=== PATIENT | male | born 1960 | race African-American/Black ===

== ENCOUNTER 2019-09-08 07:20 | Emergency (ER) | payer OTHER ==
[~2019-09-08] VITALS: Ht 167.6 cm; Wt 72.7 kg
[~2019-09-08 07:20] MED LIST: AMLO-258 PO; IBUP-2077 PO
[2019-09-08] MEDS ORDERED: GENTAMICIN SULFATE 0.3% OPHTHALMIC SOLUTION 5 ML OD ONE (08:00)
[2019-09-08] MEDS ORDERED: ACETAMINOPHEN 500 MG TABLET PO ONE (08:00)
[2019-09-08 08:14] VITALS: BP 157/89
== END 2019-09-08 08:14 | disposition home or self-care (01) ==
LOC: EMS 07:23
DX: S00.83XA Contusion of other part of head, initial encounter (principal); H10.9 Unspecified conjunctivitis; I10 Essential (primary) hypertension; F17.210 Nicotine dependence, cigarettes, uncomplicated; Z79.899 Other long term (current) drug therapy; W55.12XA Struck by horse, initial encounter; Y93.89 Activity, other specified; Y92.89 Other specified places as the place of occurrence of the external cause; Y99.8 Other external cause status
CPT/HCPCS: 99406

== ENCOUNTER 2020-08-15 15:11 | Inpatient (IN) | payer OTHER ==
[~2020-08-15] VITALS: Ht 170.2 cm; Wt 66.0 kg
[2020-08-15 16:47] LABS: BASOPHILS % (AUTO) 0.6 % (0.0-2.0); EOSINOPHILS % (AUTO) 4.3 % (1.0-6.0); HEMATOCRIT 42.4 % (41-53); HEMOGLOBIN 14.2 g/dL (13.5-17.5); LYMPHOCYTES # (AUTO) 1.3 K/uL (1.0-4.8); LYMPHOCYTES % (AUTO) 25.4 % (22.0-44.0); MEAN CORPUSCULAR HEMOGLOBIN 33.4 pg (26.0-34.0); MEAN CORPUSCULAR HGB CONC 33.4 G/dL (31.0-37.0); MEAN CORPUSCULAR VOLUME 100 fL (80-100); MONOCYTES # (AUTO) 0.4 K/uL (0.1-1.0); MONOCYTES % (AUTO) 8.2 % (2.0-9.0); NEUTROPHILS # (AUTO) 3.1 K/uL (1.8-7.7); NEUTROPHILS % (AUTO) 61.5 % (40.0-70.0); PLATELET COUNT (AUTO) 226 K/uL (150-450); RED BLOOD CELL COUNT(AUTO) 4.25 MIL/uL (4.50-5.90); RED CELL DISTRIBUTION WIDTH 12.7 % (11.5-14.5)
[2020-08-15 16:50] LABS: ANION GAP 5 mmol/L (8-16); CALCIUM, TOTAL 8.6 mg/dL (8.8-10.5); CARBON DIOXIDE 28 mmol/L (22-29); CHLORIDE 106 mmol/L (98-107); GLOMERULAR FILTR. RATE CALC 50 mL/min (>60); GLUCOSE,RANDOM 96 mg/dL (70-110); SODIUM SERUM 139 mmol/L (136-145); UREA NITROGEN, BLOOD 15 mg/dL (7-18)
[2020-08-15 16:55] LABS: ALANINE AMINOTRANSFERASE 23 U/L (12-78); ALBUMIN 3.5 g/dL (3.4-5.0); ALKALINE PHOSPHATASE 84 U/L (46-116); ASPARTATE AMINOTRANSFERASE 26 U/L (15-37); BILIRUBIN,TOTAL 1.4 mg/dL (0.1-1.0); TOTAL PROTEIN, SERUM 6.7 g/dL (6.4-8.2)
[2020-08-15] MEDS ORDERED: ASPIRIN 325 MG TABLET PO ONE (18:30)
[2020-08-15] MEDS ORDERED: ACETAMINOPHEN 325 MG TABLET PO PRN ×2 (18:30→21:00)
[2020-08-15] MEDS ORDERED: 0.9% SODIUM CHLORIDE 10 ML SYRINGE IVP PRN (18:30)
[2020-08-15] MEDS ORDERED: ONDANSETRON HCL 4 MG/2 ML VIAL IVP PRN ×2 (18:30→21:00)
[2020-08-15 19:29] LABS: COVID AG,FIA SOURCE NASOPHARYNGEAL
[2020-08-15] MEDS: DOCUSATE SODIUM 100 MG CAPSULE PO SCH (21:00)
[2020-08-15] MEDS ORDERED: HYDROCODONE/ACETAMINOPHEN 5-325 MG TABLET PO PRN (21:00)
[2020-08-15] MEDS ORDERED: ZOLPIDEM TARTRATE 5 MG TABLET PO PRN (21:00)
[2020-08-15] MEDS ORDERED: MAGNESIUM HYDROXIDE SUSPENSION 30 ML UDCUP PO PRN (21:00)
[2020-08-15] MEDS ORDERED: BISACODYL 10 MG RECTAL RECTAL SUPPOSITORY PR PRN (21:00)
[2020-08-15] MEDS ORDERED: ERYTHROMYCIN 0.5% 3.5 GM TUBE OPHTHALMIC OINTMENT OS ONE (21:00)
[2020-08-15] MEDS ORDERED: MORPHINE SULFATE 2 MG/ML SYRINGE IVP PRN (21:00)
[2020-08-15] MEDS ORDERED: SODIUM CHLORIDE 0.9% 1,000 ML IV ONE (21:15)
[2020-08-15 22:26] VITALS: BP 155/95
[2020-08-15] MEDS: HEPARIN SODIUM,PORCINE 5,000 UNITS/ML VIAL SQ SCH (23:11)
[2020-08-16 04:47] VITALS: BP 125/80
[2020-08-16 06:27] LABS: BASOPHILS % (AUTO) 0.3 % (0.0-2.0); EOSINOPHILS % (AUTO) 5.1 % (1.0-6.0); HEMATOCRIT 38.8 % (41-53); HEMOGLOBIN 12.8 g/dL (13.5-17.5); LYMPHOCYTES # (AUTO) 1.4 K/uL (1.0-4.8); LYMPHOCYTES % (AUTO) 31.3 % (22.0-44.0); MEAN CORPUSCULAR HEMOGLOBIN 33.3 pg (26.0-34.0); MEAN CORPUSCULAR VOLUME 101 fL (80-100); MONOCYTES # (AUTO) 0.4 K/uL (0.1-1.0); MONOCYTES % (AUTO) 10.1 % (2.0-9.0); NEUTROPHILS # (AUTO) 2.3 K/uL (1.8-7.7); NEUTROPHILS % (AUTO) 53.2 % (40.0-70.0); PLATELET COUNT (AUTO) 207 K/uL (150-450); RED BLOOD CELL COUNT(AUTO) 3.84 MIL/uL (4.50-5.90); RED CELL DISTRIBUTION WIDTH 12.9 % (11.5-14.5)
[2020-08-16 06:49] LABS: CALCIUM, TOTAL 8.4 mg/dL (8.8-10.5); CHOL/HDL RATIO 2.8 (4.2-7.3); CREATININE 1.67 mg/dL (0.60-1.30); POTASSIUM 3.9 mmol/L (3.5-5.1)
[2020-08-16] MEDS: PANTOPRAZOLE SODIUM 40 MG DR TABLET PO SCH (07:44)
[2020-08-16] MEDS: AmLODIPine BESYLATE 10 MG TABLET PO SCH (07:44)
[2020-08-16] MEDS: DOCUSATE SODIUM 100 MG CAPSULE PO SCH ×2 (07:44→20:25)
[2020-08-16] MEDS: ASPIRIN 81 MG CHEWABLE TABLET PO SCH (07:44)
[2020-08-16] MEDS: HEPARIN SODIUM,PORCINE 5,000 UNITS/ML VIAL SQ SCH ×3 (07:45→23:21)
[2020-08-16] MEDS ORDERED: GADOTERATE MEGLUMINE 10 MMOL/20 ML VIAL IVP ONE (08:19)
[2020-08-16 08:20] VITALS: BP 131/72
[2020-08-16] MEDS ORDERED: SODIUM CHLORIDE 0.9% 1,000 ML IV ONE (11:00)
[2020-08-16] MEDS: ATORVASTATIN CALCIUM 40 MG TABLET PO SCH (11:29)
[2020-08-16 16:40] VITALS: BP 147/83
[2020-08-16 20:03] VITALS: BP 126/77
[2020-08-16 23:38] VITALS: BP 133/74
[2020-08-17 04:21] VITALS: BP 145/82
[2020-08-17 06:24] LABS: CALCIUM, TOTAL 8.3 mg/dL (8.8-10.5); CREATININE 1.46 mg/dL (0.60-1.30); POTASSIUM 4.2 mmol/L (3.5-5.1)
[2020-08-17] MEDS: HEPARIN SODIUM,PORCINE 5,000 UNITS/ML VIAL SQ SCH ×3 (08:02→21:58)
[2020-08-17] MEDS: ATORVASTATIN CALCIUM 40 MG TABLET PO SCH (08:02)
[2020-08-17] MEDS: AmLODIPine BESYLATE 10 MG TABLET PO SCH (08:02)
[2020-08-17] MEDS: ASPIRIN 81 MG CHEWABLE TABLET PO SCH (08:02)
[2020-08-17] MEDS: PANTOPRAZOLE SODIUM 40 MG DR TABLET PO SCH (08:02)
[2020-08-17] MEDS: DOCUSATE SODIUM 100 MG CAPSULE PO SCH ×2 (08:02→21:49)
[2020-08-17 08:09] VITALS: BP 138/90
[2020-08-17 12:11] VITALS: BP 144/87
[2020-08-17 15:53] VITALS: BP 130/77
[2020-08-17 19:30] VITALS: BP 148/79
[2020-08-18 00:24] VITALS: BP 131/87
[2020-08-18 05:33] VITALS: BP 139/85
[2020-08-18 07:34] VITALS: BP 141/97
[2020-08-18] MEDS: ASPIRIN 81 MG CHEWABLE TABLET PO SCH (08:20)
[2020-08-18] MEDS: ATORVASTATIN CALCIUM 40 MG TABLET PO SCH (08:20)
[2020-08-18] MEDS: PANTOPRAZOLE SODIUM 40 MG DR TABLET PO SCH (08:20)
[2020-08-18] MEDS: AmLODIPine BESYLATE 10 MG TABLET PO SCH (08:20)
[2020-08-18] MEDS: HEPARIN SODIUM,PORCINE 5,000 UNITS/ML VIAL SQ SCH (08:21)
[2020-08-18] MEDS: DOCUSATE SODIUM 100 MG CAPSULE PO SCH (08:21)
[2020-08-18 11:33] VITALS: BP 152/89
[2020-08-18] MEDS ORDERED: ASPI81TA87 PO (12:56)
[2020-08-18] MEDS ORDERED: AMLO10TA55 PO (12:57)
[2020-08-18] MEDS ORDERED: ATOR40TA28 PO (12:57)
== END 2020-08-18 15:00 | disposition home or self-care (01) | DRG 45 ==
LOC: EMS 15:12 → 5S 18:52
PROVIDERS: ADMIT Internal Medicine; ATTEND Internal Medicine
DX: I63.9 Cerebral infarction, unspecified (principal); N17.9 Acute kidney failure, unspecified; F17.200 Nicotine dependence, unspecified, uncomplicated; H10.9 Unspecified conjunctivitis; G81.91 Hemiplegia, unspecified affecting right dominant side; I12.9 Hypertensive chronic kidney disease with stage 1 through stage 4 chronic kidney disease, or unspecified chronic kidney disease; N18.9 Chronic kidney disease, unspecified; E78.5 Hyperlipidemia, unspecified; Z20.822 Contact with and (suspected) exposure to COVID-19; S00.83XA Contusion of other part of head, initial encounter; X58.XXXA Exposure to other specified factors, initial encounter; Y93.89 Activity, other specified; Y92.89 Other specified places as the place of occurrence of the external cause; Y99.8 Other external cause status
CPT/HCPCS: 70450; 70553; 80048; 80053; 80061; 84484; 85025; 92507; 92521; 92610; 93005; 93306; 93880; 97110; 97112; 97116; 97162; 97166; 97535; 99285; A9575; G0480; J1644; J7030

== ENCOUNTER 2020-11-26 20:54 | Emergency (ER) | payer OTHER ==
[~2020-11-26] VITALS: Ht 167.6 cm; Wt 54.5 kg
[~2020-11-26 20:54] MED LIST changes: +AMLO10TA55 PO; +ASPI81TA87 PO; +ATOR40TA28 PO; -IBUP-2077 PO
[2020-11-26] MEDS ORDERED: HYDROCODONE/ACETAMINOPHEN 5-325 MG TABLET PO ONE (21:45)
[2020-11-26] MEDS ORDERED: LIDOCAINE 1% 10 ML VIAL ID ONE (22:00)
[2020-11-26 23:00] VITALS: BP 137/81
[2020-11-26] MEDS ORDERED: SULFAMETHOX/TRIMETH DS 800-160 MG/TABLET PO ONE (23:00)
[2020-11-26] MEDS ORDERED: CEPHALEXIN MONOHYDRATE 500 MG CAPSULE PO ONE (23:00)
[2020-11-26] MEDS ORDERED: PERTUSS(ACELL),DIPH,TET VAC/PF 0.5 ML SYRINGE IM. ONE (23:00)
== END 2020-11-27 00:01 | disposition home or self-care (01) ==
LOC: EMS 21:05
DX: L08.9 Local infection of the skin and subcutaneous tissue, unspecified (principal); L03.011 Cellulitis of right finger; I12.9 Hypertensive chronic kidney disease with stage 1 through stage 4 chronic kidney disease, or unspecified chronic kidney disease; N18.9 Chronic kidney disease, unspecified; Z79.82 Long term (current) use of aspirin; F17.210 Nicotine dependence, cigarettes, uncomplicated
CPT/HCPCS: 10160; 73130; 82962; 90471; 90715; 99284; J3490

== ENCOUNTER 2020-12-16 17:01 | Inpatient (IN) | payer OTHER ==
[~2020-12-16] VITALS: Ht 167.6 cm; Wt 64.7 kg
[2020-12-16] MEDS ORDERED: CEPH500C3 PO (17:21)
[2020-12-16] MEDS ORDERED: GABA-1216 PO (17:21)
[2020-12-16] MEDS ORDERED: ATOR40TA28 PO (17:21)
[2020-12-16] MEDS ORDERED: DOCU-270 PO (17:21)
[2020-12-16] MEDS ORDERED: SULF-261 PO (17:21)
[2020-12-16] MEDS ORDERED: TRAM50TA4 PO (17:21)
[2020-12-16] MEDS ORDERED: TAMS-13 PO (17:21)
[2020-12-16] MEDS ORDERED: ACETAMINOPHEN 325 MG TABLET PO ONE (19:30)
[2020-12-16 19:49] LABS: EOSINOPHILS % (AUTO) 3.5 % (1.0-6.0); HEMATOCRIT 35.4 % (41-53); HEMOGLOBIN 11.7 g/dL (13.5-17.5); LYMPHOCYTES # (AUTO) 1.4 K/uL (1.0-4.8); LYMPHOCYTES % (AUTO) 29.8 % (22.0-44.0); MEAN CORPUSCULAR HEMOGLOBIN 32.7 pg (26.0-34.0); MEAN CORPUSCULAR VOLUME 99 fL (80-100); MONOCYTES # (AUTO) 0.5 K/uL (0.1-1.0); MONOCYTES % (AUTO) 11.7 % (2.0-9.0); NEUTROPHILS # (AUTO) 2.5 K/uL (1.8-7.7); PLATELET COUNT (AUTO) 290 K/uL (150-450); RED BLOOD CELL COUNT(AUTO) 3.57 MIL/uL (4.50-5.90); RED CELL DISTRIBUTION WIDTH 13.7 % (11.5-14.5)
[2020-12-16 20:00] LABS: CALCIUM, TOTAL 8.9 mg/dL (8.8-10.5); CREATININE 1.83 mg/dL (0.60-1.30); POTASSIUM 4.8 mmol/L (3.5-5.1)
[2020-12-16 20:06] LABS: ALBUMIN 3.7 g/dL (3.4-5.0); BILIRUBIN,TOTAL 0.5 mg/dL (0.1-1.0); TOTAL PROTEIN, SERUM 7.3 g/dL (6.4-8.2)
[2020-12-16] MEDS ORDERED: ACETAMINOPHEN 325 MG TABLET PO PRN (20:45)
[2020-12-16] MEDS ORDERED: ONDANSETRON HCL 4 MG/2 ML VIAL IVP PRN ×2 (20:45→21:00)
[2020-12-16] MEDS ORDERED: SODIUM CHLORIDE 0.9% 1,000 ML IV ONE (20:45)
[2020-12-16] MEDS: ATORVASTATIN CALCIUM 40 MG TABLET PO SCH (20:50)
[2020-12-16 20:51] LABS: COVID AG,FIA SOURCE NASOPHARYNGEAL
[2020-12-16] MEDS: OxyCODONE HCL/ACETAMINOPHEN 5-325 MG TABLET PO PRN (20:52)
[2020-12-16] MEDS: DOCUSATE SODIUM 100 MG CAPSULE PO SCH (20:53)
[2020-12-16] MEDS ORDERED: ASPIRIN 81 MG CHEWABLE TABLET PO SCH (21:00)
[2020-12-16] MEDS: HEPARIN SODIUM,PORCINE 5,000 UNITS/ML VIAL SQ SCH (23:07)
[2020-12-17] MEDS: OxyCODONE HCL/ACETAMINOPHEN 5-325 MG TABLET PO PRN ×3 (01:06→19:49)
[2020-12-17] MEDS: HEPARIN SODIUM,PORCINE 5,000 UNITS/ML VIAL SQ SCH ×3 (08:04→23:46)
[2020-12-17] MEDS: AmLODIPine BESYLATE 5 MG TABLET PO SCH (08:05)
[2020-12-17] MEDS: FAMOTIDINE 20 MG TABLET PO SCH (08:05)
[2020-12-17] MEDS: DOCUSATE SODIUM 100 MG CAPSULE PO SCH ×3 (08:05→20:01)
[2020-12-17 09:35] VITALS: BP 111/78
[2020-12-17 11:28] VITALS: BP 122/83
[2020-12-17] MEDS ORDERED: TraMADol HCL 50 MG TABLET PO PRN (14:30)
[2020-12-17] MEDS: CEPHALEXIN MONOHYDRATE 500 MG CAPSULE PO SCH ×2 (15:48→20:01)
[2020-12-17 15:49] VITALS: BP 121/69
[2020-12-17 19:59] VITALS: BP 107/62
[2020-12-17] MEDS: SULFAMETHOX/TRIMETH DS 800-160 MG/TABLET PO SCH (20:00)
[2020-12-17] MEDS: ATORVASTATIN CALCIUM 40 MG TABLET PO SCH (20:00)
[2020-12-17] MEDS: GABAPENTIN 100 MG CAPSULE PO SCH (20:01)
[2020-12-17 23:57] VITALS: BP 126/74
[2020-12-18 05:07] VITALS: BP 128/80
[2020-12-18 07:30] VITALS: BP 130/76
[2020-12-18] MEDS: DOCUSATE SODIUM 100 MG CAPSULE PO SCH ×3 (08:35→20:59)
[2020-12-18] MEDS: FAMOTIDINE 20 MG TABLET PO SCH (08:35)
[2020-12-18] MEDS: CEPHALEXIN MONOHYDRATE 500 MG CAPSULE PO SCH ×4 (08:35→20:37)
[2020-12-18] MEDS: ASPIRIN 81 MG DR TABLET PO SCH (08:35)
[2020-12-18] MEDS: TAMSULOSIN HCL 0.4 MG CAPSULE PO SCH (08:35)
[2020-12-18] MEDS: HEPARIN SODIUM,PORCINE 5,000 UNITS/ML VIAL SQ SCH ×3 (08:36→23:31)
[2020-12-18] MEDS: AmLODIPine BESYLATE 5 MG TABLET PO SCH (08:36)
[2020-12-18] MEDS: SULFAMETHOX/TRIMETH DS 800-160 MG/TABLET PO SCH ×2 (08:36→20:37)
[2020-12-18 11:30] VITALS: BP 114/74
[2020-12-18 15:56] LABS: BASOPHILS % (AUTO) 0.6 % (0.0-2.0); EOSINOPHILS % (AUTO) 4.1 % (1.0-6.0); HEMATOCRIT 35.7 % (41-53); HEMOGLOBIN 11.9 g/dL (13.5-17.5); LYMPHOCYTES # (AUTO) 1.2 K/uL (1.0-4.8); LYMPHOCYTES % (AUTO) 31.3 % (22.0-44.0); MEAN CORPUSCULAR HEMOGLOBIN 33.2 pg (26.0-34.0); MEAN CORPUSCULAR HGB CONC 33.4 G/dL (31.0-37.0); MEAN CORPUSCULAR VOLUME 100 fL (80-100); MONOCYTES # (AUTO) 0.4 K/uL (0.1-1.0); MONOCYTES % (AUTO) 10.4 % (2.0-9.0); NEUTROPHILS % (AUTO) 53.6 % (40.0-70.0); PLATELET COUNT (AUTO) 268 K/uL (150-450); RED BLOOD CELL COUNT(AUTO) 3.58 MIL/uL (4.50-5.90); RED CELL DISTRIBUTION WIDTH 13.5 % (11.5-14.5)
[2020-12-18 16:14] LABS: ALBUMIN 3.6 g/dL (3.4-5.0); BILIRUBIN,TOTAL 0.5 mg/dL (0.1-1.0); CALCIUM, TOTAL 8.8 mg/dL (8.8-10.5); CREATININE 1.74 mg/dL (0.60-1.30); POTASSIUM 5.1 mmol/L (3.5-5.1); TOTAL PROTEIN, SERUM 7.3 g/dL (6.4-8.2)
[2020-12-18 20:00] VITALS: BP 141/87
[2020-12-18] MEDS: OxyCODONE HCL/ACETAMINOPHEN 5-325 MG TABLET PO PRN (20:37)
[2020-12-18] MEDS: GABAPENTIN 100 MG CAPSULE PO SCH (21:21)
[2020-12-18] MEDS: ATORVASTATIN CALCIUM 40 MG TABLET PO SCH (21:21)
[2020-12-19 03:54] VITALS: BP 146/89
[2020-12-19 07:37] VITALS: BP 140/86
[2020-12-19] MEDS: SULFAMETHOX/TRIMETH DS 800-160 MG/TABLET PO SCH ×2 (08:30→19:43)
[2020-12-19] MEDS: TAMSULOSIN HCL 0.4 MG CAPSULE PO SCH (08:30)
[2020-12-19] MEDS: CEPHALEXIN MONOHYDRATE 500 MG CAPSULE PO SCH ×4 (08:30→19:43)
[2020-12-19] MEDS: FAMOTIDINE 20 MG TABLET PO SCH (08:30)
[2020-12-19] MEDS: DOCUSATE SODIUM 100 MG CAPSULE PO SCH ×3 (08:30→19:45)
[2020-12-19] MEDS: HEPARIN SODIUM,PORCINE 5,000 UNITS/ML VIAL SQ SCH ×3 (08:31→23:53)
[2020-12-19] MEDS: ASPIRIN 81 MG DR TABLET PO SCH (08:31)
[2020-12-19] MEDS: AmLODIPine BESYLATE 5 MG TABLET PO SCH (08:31)
[2020-12-19 19:30] VITALS: BP 146/77
[2020-12-19] MEDS: GABAPENTIN 100 MG CAPSULE PO SCH (19:43)
[2020-12-19] MEDS: ATORVASTATIN CALCIUM 40 MG TABLET PO SCH (19:43)
[2020-12-19] MEDS: ACETAMINOPHEN 325 MG TABLET PO PRN (19:43)
[2020-12-20 04:40] VITALS: BP 135/82
[2020-12-20 08:00] VITALS: BP 148/91
[2020-12-20] MEDS: DOCUSATE SODIUM 100 MG CAPSULE PO SCH ×2 (08:15→19:49)
[2020-12-20] MEDS: TAMSULOSIN HCL 0.4 MG CAPSULE PO SCH (08:15)
[2020-12-20] MEDS: HEPARIN SODIUM,PORCINE 5,000 UNITS/ML VIAL SQ SCH ×3 (08:15→23:42)
[2020-12-20] MEDS: FAMOTIDINE 20 MG TABLET PO SCH (08:16)
[2020-12-20] MEDS: CEPHALEXIN MONOHYDRATE 500 MG CAPSULE PO SCH ×4 (08:16→19:49)
[2020-12-20] MEDS: AmLODIPine BESYLATE 5 MG TABLET PO SCH (08:16)
[2020-12-20] MEDS: SULFAMETHOX/TRIMETH DS 800-160 MG/TABLET PO SCH ×2 (08:16→19:49)
[2020-12-20] MEDS: ASPIRIN 81 MG DR TABLET PO SCH (08:16)
[2020-12-20] MEDS ORDERED: ATOR40TA71 PO (12:39)
[2020-12-20] MEDS ORDERED: DOCU-119 PO (12:39)
[2020-12-20 16:09] VITALS: BP 145/88
[2020-12-20] MEDS: GABAPENTIN 100 MG CAPSULE PO SCH (19:49)
[2020-12-20] MEDS: ATORVASTATIN CALCIUM 40 MG TABLET PO SCH (19:49)
[2020-12-20] MEDS: OxyCODONE HCL/ACETAMINOPHEN 5-325 MG TABLET PO PRN ×2 (19:49→23:52)
[2020-12-20 19:51] VITALS: BP 137/84
[2020-12-21 05:20] VITALS: BP 120/83
[2020-12-21 07:33] VITALS: BP 127/76
[2020-12-21] MEDS: AmLODIPine BESYLATE 5 MG TABLET PO SCH (08:10)
[2020-12-21] MEDS: FAMOTIDINE 20 MG TABLET PO SCH (08:10)
[2020-12-21] MEDS: DOCUSATE SODIUM 100 MG CAPSULE PO SCH (08:10)
[2020-12-21] MEDS: TAMSULOSIN HCL 0.4 MG CAPSULE PO SCH (08:10)
[2020-12-21] MEDS: ASPIRIN 81 MG DR TABLET PO SCH (08:10)
[2020-12-21] MEDS: HEPARIN SODIUM,PORCINE 5,000 UNITS/ML VIAL SQ SCH ×2 (08:10→16:15)
[2020-12-21] MEDS: SULFAMETHOX/TRIMETH DS 800-160 MG/TABLET PO SCH (08:10)
[2020-12-21] MEDS: CEPHALEXIN MONOHYDRATE 500 MG CAPSULE PO SCH ×3 (08:10→16:14)
[2020-12-21 15:37] VITALS: BP 124/80
[2020-12-21] MEDS: ACETAMINOPHEN 325 MG TABLET PO PRN (16:28)
== END 2020-12-21 17:10 | disposition home or self-care (01) | DRG 58 ==
LOC: EMS 17:05 → 5S 12-17 05:40 → 6N 12-18 19:00
PROVIDERS: ADMIT Internal Medicine; ATTEND Internal Medicine
DX: R27.0 Ataxia, unspecified (principal); N17.9 Acute kidney failure, unspecified; L08.9 Local infection of the skin and subcutaneous tissue, unspecified; I10 Essential (primary) hypertension; R29.6 Repeated falls; F17.210 Nicotine dependence, cigarettes, uncomplicated; N18.9 Chronic kidney disease, unspecified; Z59.00 Homelessness unspecified; I69.151 Hemiplegia and hemiparesis following nontraumatic intracerebral hemorrhage affecting right dominant side
CPT/HCPCS: 70450; 71045; 80053; 85025; 87081; 93005; 97110; 97112; 97116; 97162; 97165; 97530; 97535; 99285; G0378; J1644; J2405; J7030; 36415-L1; 36415-TC

== ENCOUNTER 2022-08-21 18:53 | Emergency (ER) | payer MEDICAID, OTHER ==
[~2022-08-21] VITALS: Ht 167.6 cm; Wt 59.0 kg
[~2022-08-21 18:53] MED LIST changes: -AMLO-258 PO; +ATOR40TA71 PO; +DOCU-119 PO; +GABA-1216 PO; +TAMS-13 PO
[2022-08-21 19:34] VITALS: TEMP 98.5
[2022-08-21 19:43] VITALS: BP 142/95; PULSE 92; RESP 16
== END 2022-08-21 21:35 | disposition left against medical advice (07) ==
LOC: EMS 18:54
DX: H57.12 Ocular pain, left eye (principal); Z53.21 Procedure and treatment not carried out due to patient leaving prior to being seen by health care provider
CPT/HCPCS: 99281; Z7502

== ENCOUNTER 2022-08-22 03:44 | Emergency (ER) | payer MEDICAID ==
[~2022-08-22] VITALS: Ht 167.6 cm; Wt 64.0 kg
[2022-08-22 04:01] VITALS: BP 127/90; PULSE 96; RESP 17; TEMP 98.4
[2022-08-22] MEDS ORDERED: TOBRAMYCIN/DEXAMETHASONE 5 ML OPHTHALMIC SUSPENSION OS ONE (04:15)
== END 2022-08-22 04:21 | disposition home or self-care (01) ==
LOC: EMS 03:45
DX: H11.32 Conjunctival hemorrhage, left eye (principal); I11.0 Hypertensive heart disease with heart failure; I50.9 Heart failure, unspecified; E78.00 Pure hypercholesterolemia, unspecified; I63.9 Cerebral infarction, unspecified; F17.210 Nicotine dependence, cigarettes, uncomplicated
CPT/HCPCS: 99282; Z7502; Z7610

== ENCOUNTER 2024-02-02 11:23 | Emergency (ER) | payer MEDICAID ==
[~2024-02-02] VITALS: Ht 167.6 cm; Wt 64.0 kg
[~2024-02-02 11:23] MED LIST changes: -TAMS-13 PO; +TAMS0.4C94 PO
[2024-02-02 12:17] VITALS: TEMP 98.4
[2024-02-02] MEDS ORDERED: IBUP-1554 PO (13:04)
[2024-02-02] MEDS ORDERED: DOXY-354 PO (13:04)
[2024-02-02] MEDS ORDERED: ACET-66 PO (13:04)
[2024-02-02] MEDS ORDERED: CEPH-558 PO (13:04)
[2024-02-02] MEDS ORDERED: GABA-1181 PO (13:07)
[2024-02-02] MEDS ORDERED: LISI10TA24 PO (13:07)
[2024-02-02] MEDS ORDERED: AMLO5TAB66 PO (13:07)
[2024-02-02] MEDS ORDERED: PANT40TA54 PO (13:07)
[2024-02-02] MEDS: CEPHALEXIN MONOHYDRATE 500 MG CAPSULE PO ONE (13:15)
[2024-02-02] MEDS: IBUPROFEN 600 MG TABLET PO ONE (13:15)
[2024-02-02 13:22] VITALS: BP 122/84; PULSE 85; RESP 16; O2SAT 97
== END 2024-02-02 13:24 | disposition home or self-care (01) ==
LOC: EMS 11:23
DX: N49.2 Inflammatory disorders of scrotum (principal); Z86.73 Personal history of transient ischemic attack (TIA), and cerebral infarction without residual deficits
CPT/HCPCS: 54700; 99283; 99284

== ENCOUNTER 2024-02-05 08:00 | Emergency (ER) | payer MEDICARE, MEDICAID ==
[~2024-02-05] VITALS: Ht 167.6 cm; Wt 63.6 kg
[~2024-02-05 08:00] MED LIST changes: +ACET-66 PO; -AMLO10TA55 PO; +AMLO5TAB66 PO; -ATOR40TA28 PO; +CEPH-558 PO; +DOXY-354 PO; +GABA-1181 PO; -GABA-1216 PO; +IBUP-1554 PO; +LISI10TA24 PO; +PANT40TA54 PO
[2024-02-05 08:10] VITALS: BP 143/85; PULSE 63; RESP 20; TEMP 98.6; O2SAT 99
== END 2024-02-05 08:51 | disposition home or self-care (01) ==
LOC: EMS 08:02
DX: N49.2 Inflammatory disorders of scrotum (principal); I11.0 Hypertensive heart disease with heart failure; I50.9 Heart failure, unspecified; E78.00 Pure hypercholesterolemia, unspecified; F17.210 Nicotine dependence, cigarettes, uncomplicated; Z79.82 Long term (current) use of aspirin; Z79.899 Other long term (current) drug therapy
CPT/HCPCS: 99281; Z7502